=== PATIENT | female | born 1955 | race Asian ===

== ENCOUNTER 2019-12-04 18:36 | Emergency (ER) | payer OTHER ==
[~2019-12-04] VITALS: Ht 149.9 cm; Wt 51.3 kg
[2019-12-04 18:38] VITALS: Ht 149.9 cm; Wt 51.3 kg
[2019-12-04 19:42] LABS: BASOPHIL % 1.4 % (0-2); PLATELET COUNT 262 x10^3mcL (130-400); RED CELL DISTRIBUTION WIDTH 13.1 % (11.5-14.5)
[2019-12-04 20:06] LABS: T3 TOTAL 0.77 ng/mL
[2019-12-04 20:36] LABS: FREE T4 1.45 ng/dL (0.76-1.46); FREE THYROXINE INDEX 3.4 ug/dL (1.4-4.5); T4(THYROXINE) 8.5 ug/dL (4.7-13.3)
[2019-12-04 20:48] LABS: CALCIUM 8.8 mg/dL (8.5-10.1); CARBON DIOXIDE 24.8 mmol/L (21-32); CHLORIDE SERUM 103 mmol/L (98-107); GFR1 59 mL/min; GLUCOSE SERUM 99 mg/dL (74-106); POTASSIUM SERUM 3.6 mmol/L (3.5-5.1); SODIUM SERUM 138 mmol/L (136-145)
[2019-12-04 20:54] LABS: ALBUMIN 3.7 g/dL (3.4-5.0); ALKALINE PHOSPHATASE 35 U/L (46-116); ALT/SGPT 23 U/L (14-59); AST/SGOT 21 U/L (15-37); BILIRUBIN TOTAL 0.24 mg/dL (0.20-1.00); CHOLESTEROL 174 mg/dL (<200); TOTAL PROTEIN, SERUM 7.4 g/dL (6.4-8.2); TRIGLYCERIDES 68 mg/dL (<150)
[2019-12-04 20:55] LABS: CHOLESTEROL/HDL RATIO 2.2; HDL CHOLESTEROL 80 mg/dL (40-60)
[2019-12-04 21:21] VITALS: BP 115/70
== END 2019-12-04 21:21 | disposition home or self-care (01) ==
LOC: ED 18:36
PROVIDERS: Specialist
DX: R00.2 Palpitations (principal); F41.9 Anxiety disorder, unspecified; I10 Essential (primary) hypertension; E78.00 Pure hypercholesterolemia, unspecified; Z98.890 Other specified postprocedural states
CPT/HCPCS: 84439; Q0092